=== PATIENT | male | born 2000 | race Two or more races ===

== ENCOUNTER 2021-12-05 05:11 | Emergency (ER) | payer OTHER ==
[~2021-12-05] VITALS: Ht 180.3 cm; Wt 100.0 kg
[2021-12-05 06:51] VITALS: BP 112/58
[2021-12-05] MEDS ORDERED: LIDOCAINE 1% HCL (LOCAL ANESTH.) INJ 20ML MDV ONE (09:10)
[2021-12-05] MEDS ORDERED: LIDOCAINE 1% HCL (LOCAL ANESTH.) INJ 20ML MDV ID ONE (09:15)
[2021-12-05] MEDS ORDERED: LORazepam 2MG/ML-1ML VIAL IV ONE (09:15)
[2021-12-05] MEDS ORDERED: ACETAMINOPHEN 325 MG TAB PO ONE ×2 (09:15→09:17)
[2021-12-05] MEDS ORDERED: NEOMYCIN-BACITRACIN-POLYM 15GM TOP OINT TOP ONE (09:45)
[2021-12-05] MEDS ORDERED: CEFD300C2 PO (09:51)
[2021-12-05] MEDS ORDERED: NAPR500T31 PO (09:51)
== END 2021-12-05 09:52 | disposition home or self-care (01) ==
LOC: ER 05:11
DX: S41.112A Laceration without foreign body of left upper arm, initial encounter (principal); F17.210 Nicotine dependence, cigarettes, uncomplicated; Y04.2XXA Assault by strike against or bumped into by another person, initial encounter; Y93.89 Activity, other specified; Y92.89 Other specified places as the place of occurrence of the external cause; Y99.8 Other external cause status
CPT/HCPCS: 12004; 99283; J2001; 12002

== ENCOUNTER 2022-01-26 02:17 | Emergency (ER) | payer OTHER ==
[~2022-01-26 02:17] MED LIST: CEFD300C2 PO; NAPR500T31 PO
== END 2022-01-26 04:07 | disposition left against medical advice (07) ==
LOC: ER 02:17
DX: S63.004A Unspecified dislocation of right wrist and hand, initial encounter (principal); Z53.21 Procedure and treatment not carried out due to patient leaving prior to being seen by health care provider; X58.XXXA Exposure to other specified factors, initial encounter; Y93.89 Activity, other specified; Y92.89 Other specified places as the place of occurrence of the external cause; Y99.8 Other external cause status

== ENCOUNTER 2022-02-08 01:15 | Emergency (ER) | payer OTHER ==
[~2022-02-08] VITALS: Ht 180.3 cm; Wt 110.0 kg
[2022-02-08 03:47] VITALS: BP 128/78
== END 2022-02-08 05:02 | disposition home or self-care (01) ==
LOC: ER 01:15
DX: S63.91XA Sprain of unspecified part of right wrist and hand, initial encounter (principal); F17.210 Nicotine dependence, cigarettes, uncomplicated; Z79.899 Other long term (current) drug therapy; W22.8XXA Striking against or struck by other objects, initial encounter; Y93.89 Activity, other specified; Y92.89 Other specified places as the place of occurrence of the external cause; Y99.8 Other external cause status
CPT/HCPCS: 73130

== ENCOUNTER 2022-09-26 14:38 | Emergency (ER) | payer OTHER ==
[~2022-09-26] VITALS: Ht 180.3 cm; Wt 104.9 kg
[~2022-09-26 14:38] MED LIST changes: +NAPR-746 PO; -NAPR500T31 PO
[2022-09-26 15:32] VITALS: BP 137/90
[2022-09-26] MEDS ORDERED: IBUP-1456 PO (18:24)
== END 2022-09-26 20:44 | disposition home or self-care (01) ==
LOC: ER 14:40
DX: S83.92XA Sprain of unspecified site of left knee, initial encounter (principal); I10 Essential (primary) hypertension; F17.210 Nicotine dependence, cigarettes, uncomplicated; F12.10 Cannabis abuse, uncomplicated; X50.1XXA Overexertion from prolonged static or awkward postures, initial encounter; Y93.61 Activity, american tackle football; Y92.89 Other specified places as the place of occurrence of the external cause; Y99.8 Other external cause status
CPT/HCPCS: 29505; 73562

== ENCOUNTER 2023-06-22 18:16 | Emergency (ER) | payer MEDICAID, OTHER ==
[~2023-06-22] VITALS: Ht 180.3 cm; Wt 114.0 kg
[~2023-06-22 18:16] MED LIST changes: +IBUP-1456 PO
[2023-06-22] MEDS ORDERED: MUPI2OIN2 EX (20:51)
[2023-06-22] MEDS ORDERED: IBUP1TAB5 PO (20:51)
[2023-06-22] MEDS ORDERED: CEPH500T PO (20:51)
[2023-06-22 21:40] VITALS: BP 143/93; TEMP 98.4; O2SAT 98
[2023-06-22 21:45] VITALS: PULSE 69; RESP 18
[2023-06-22] MEDS: NEOMYCIN-BACITRACIN-POLYM UNITDOSE PKG TOP OINT TOP ONE (21:50)
[2023-06-22] MEDS: TETANUS-DIPTH-ACEL PERTUSSIS 0.5ML SYR Tdap IM ONE (21:50)
[2023-06-22] MEDS: HYDROcodone-ACET 5/325MG TAB PO ONE (21:51)
[2023-06-22] MEDS: CEPHALEXIN 250 MG CAP PO ONE (21:51)
== END 2023-06-22 21:53 | disposition home or self-care (01) ==
LOC: ER 18:16
DX: S61.213A Laceration without foreign body of left middle finger without damage to nail, initial encounter (principal); I10 Essential (primary) hypertension; F17.210 Nicotine dependence, cigarettes, uncomplicated; Z79.1 Long term (current) use of non-steroidal anti-inflammatories (NSAID); Z79.899 Other long term (current) drug therapy; W26.8XXA Contact with other sharp object(s), not elsewhere classified, initial encounter; Y93.89 Activity, other specified; Y92.89 Other specified places as the place of occurrence of the external cause; Y99.8 Other external cause status
CPT/HCPCS: 12002; 73140; 90471; 90715

== ENCOUNTER 2024-12-28 08:31 | Emergency (ER) | payer MEDICAID, OTHER ==
[~2024-12-28] VITALS: Ht 180.3 cm; Wt 95.0 kg
[~2024-12-28 08:31] MED LIST changes: +CEPH500T PO; +IBUP1TAB5 PO; +MUPI2OIN2 EX
--- NOTE | 2024-12-28 09:04 | ED.PDOC ---
Musculoskeletal HPI Comments A 24-YEAR-OLD MALE WHO PRESENTS TO THE ED TO COMPLAIN OF LOWER EXTREMITY PAIN. PATIENT HAS BEEN HAVING BILATERAL LOWER EXTREMITY PAIN AND NUMBNESS SINCE 1 WEEK PRIOR WITH ASSOCIATED LOWER BACK PAIN. PATIENT STATES HE OTHERWISE HAS HISTORY OF LOWER BACK PAIN FOR THE PAST 1 YEAR AND STATES THAT HIS JOB AT [employer] REQUIRE S LIFTING HEAVY PACKAGES. PATIENT OTHERWISE IN THE ED ABLE TO AMBULATE WITHOUT ANY NOTED PAIN. PATIENT IN THE ED OTHERWISE HAS STABLE VITALS INCLUDING BLOOD PRESSURE 139/90 TEMPERATURE 98.5 F RESPIRATORY RATE 18 HEART RATE 77 AND O2 SATURATION AT 96% ON ROOM AIR. THERE IS NO SADDLE ANESTHESIA, URINARY OR BOWEL INCONTINENCE, PT DENIES FEVER, SOB, CHEST PAIN, DIFFICULRY URINATION, ABD PAIN, NAUSEA, VOMITING AND OTHER COMPLAINTS. PT IS ALERT, ORIENTATION X4 WITH NORMAL GAIT. Chief Complaint: Lower Extremity Time Seen by MD: 09:01 Primary Care Provider: COMMUNITY Reviewed Notes: Nurses Notes, Medications, Allergies Allergies: Coded Allergies: NO KNOWN ALLERGIES (Unverified , 12/05/21) Home Meds Active Scripts Mupirocin (Pseudomonas Fluores (Mupirocin) 2 % Oin, 1 APPLIC EX TID, #15 MG Prov:RAMIREZ,NORALDA Q DIGITAL RECRUITER 06/22/23 Ibuprofen Micronized (Ibuprofen) 600 Mg Tab, 1 TAB PO Q6HPRN PRN, #20 TAB as needed for pain Prov:RAMIREZ,NORALDA Q DIGITAL RECRUITER 06/22/23 Cephalexin Monohydrate (Cephalexin) 500 Mg Tab, 1 TAB PO QID for 10 Days, #40 TAB Prov:RAMIREZ,NORALDA Q DIGITAL RECRUITER 06/22/23 Ibuprofen (Ibuprofen) 800 Mg Tab, 1 TAB PO TID PRN, #30 TAB 0 Refills Prov:ARELI HOYOS 09/26/22 Naproxen (Naproxen) 500 Mg Tab, 500 MG PO BID for 5 Days, #10 TAB Prov:ALEXANDRA RAYMOND MD 12/05/21 Cefdinir (Cefdinir) 300 Mg Cap, 1 CAP PO BID for 7 Days, #14 CAP Prov:ALEXANDRA RAYMOND MD 12/05/21 Information Source: Patient Mode of Arrival: Ambulatory Location: Bilateral Extremity Location: Back Timing: Days Prehospital treatment: None Severity: Mild, Moderate Able to Move Extremity: Yes Bear Weight: Fully Pain: Mild Hand Dominance: Right Onset of Symptoms: Spontaneous Symptoms: Pain DVT Risk Factors: NONE Last Tetanus: UTD Associated signs and symptoms: Back pain Past Medical History PAST MEDICAL HISTORY: HTN Past Medical History (Other): CHRONIC LOW BACK PAIN Surgical History: Hernia Repair Family History Family History: Reviewed,noncontributory to illness Social History Smoker: Cigarettes, Less Than 1 Pack/Day Alcohol: Occasionally Drugs: Marijuana Lives In: Home Constitutional: denies: chills, diaphoresis, fatigue, fever, malaise, sweats, weakness, others EENTM: denies: blurred vision, double vision, ear bleeding, ear discharge, ear drainage, ear pain, ear ringing, eye pain, eye redness, hearing loss, mouth pain, mouth swelling, nasal discharge, nose bleeding, nose congestion, nose pain, photophobia, tearing, throat pain, throat swelling, voice changes, others Respiratory: denies: cough, hemoptysis, orthopnea, SOB at rest, shortness of breath, SOB with excertion, stridor, wheezing, others Cardiovascular: denies: chest pain, dizzy spells, diaphoresis, Dyspnea on exertion, edema, irregular heart beat, left arm pain, lightheadedness, palpitations, PND, syncope, others Gastrointestinal: denies: abdomen distended, abdominal pain, blood streaked bowels, constipated, diarrhea, dysphagia, difficulty swallowing, hematemesis, melena, nausea, poor appetite, poor fluid intake, rectal bleeding, rectal pain, vomiting, others Genitourinary: denies: burning, dysuria, flank pain, frequency, hematuria, incontinence, penile discharge, penile sore, pain, testicle pain, testicle swelling, urgency, others Neurological: denies: dizziness, fainting, headache, left sided numbness, left sided weakness, numbness, paresthesia, pre-existing deficit, right sided numbness, right sided weakness, seizure, speech problems, tingling, tremors, weakness, others Musculoskeletal: reports: back pain, muscle pain; denies: gout, joint pain, joint swelling, muscle stiffness, neck pain, others Integumetry: denies: bruises, change in color, change in hair/nails, dryness, laceration, lesions, lumps, rash, wounds, others Allergic/Immunocompromised: denies: Difficulty Healing, Frequent Infections, Hives, Itching, others Endocrine: denies: excessive hunger, excessive sweating, excessive thirst, excessive urination, flushing, intolerance to cold, intolerance to heat, unexplained weight gain, unexplained weight loss, others Psychiatric: denies: anxiety, bipolar disorder, depression, hopeless, panic disorder, schizophrenia, sleepless, suicidal, others All Other Systems: Reviewed and Negative Physical Exam General Appearance: No Apparent Distress, Normal HEENT: Normal ENT Inspection, PERRL/EOMI, Pharynx Normal, TMs Normal Neck: Full Range of Motion, Non-Tender, Normal, Normal Inspection Respiratory: Chest Non-Tender, Lungs Clear, No Accessory Muscle Use, No Respiratory Distress, Normal Breath Sounds Cardiovascular: No Edema, No JVD, No Murmur, No Gallop, Normal Peripheral Pulses, Regular Rate/Rhythm Breast Exam: Deferred Gastrointestinal: No Organomegaly, Non Tender, No Pulsatile Mass, Normal Bowel Sounds, Soft Genitalia: Deferred Pelvic: Deferred Rectal: Deferred Extremities: No calf tenderness, Normal capillary refill, Normal inspection, Normal range of motion, Non-tender, No pedal edema Musculoskeletal : Location: Bilateral Extremity Location: Back, Other (NO REDNESS AND SWELLING ON BILATERAL LOWER LEGS, NO DVT SIGNS. ) Apperance: Tenderness (AND MUSCLE SPASM ON LOWER BACK, NO BONY TENDERNESS, SWELLING AND DEFORMITY, ) Neurologic: Alert, wardrobe consultant II-XII nml as Tested, No Motor Deficits, Normal Affect, Normal Mood, No Sensory Deficits Cerebellar Function: Normal Reflexes: Normal Skin: Dry, Normal Color, Warm Peripheral Pulses: 2+ carotid (R), 2+ carotid (L), 2+ dorsalis pedis (R), 2+ dorsalis pedis (L) Lymphatic: No Adenopathy Was a procedure done? Was a procedure done?: No Differential Diagnosis EXT Differential Diagnosis: DJD, Strain, Other (CHRONIC LOW BCK PAIN EXACERBATION ) Other Differential Diagnosis MUSCLE STRAIN MUSCLE SPASM LUMBAR RADICULOPATHY X-Ray, Labs, Meds, VS Vital Signs Date Time Temp Pulse Resp B/P (MAP) Pulse Ox O2 Delivery O2 Flow Rate FiO2 12/28/24 08:36 98.5 77 18 139/90 96 98.5 Current Medications Medications (Trade) Dose Ordered Sig/Niko Route Start Time Stop Time Status Last Admin Methylprednisolone Sodium Succinate (Solu Medrol) 125 mg ONCE ONCE IM 12/28/24 09:15 12/28/24 09:16 DC 12/28/24 09:17 PATIENT: MAGGIE SCHULTZT: [id number]: [id number] : 2000 LOC: ER ROOM / BED: / AGE / SEX: 24 / M ADM STATUS: REG ER SERVICE ORDERING PHYSICIAN: MAURIZIO BETANCUR PROCEDURE(s): LUMB2 - LUMBAR SPINE 3 VIEW REASON: LOW BACK PAIN TO LOWER LEGS ORDER NUMBER(s): [id number], ACCESSION NUMBER(s): [id number] CLINICAL HISTORY: LOW BACK PAIN TO LOWER LEGS TECHNIQUE: 2 views of the lumbar spine were obtained. COMPARISON: None FINDINGS: The alignment of the lumbar spine is normal. The vertebral body heights and intervertebral disc spaces are well maintained. No acute fracture or dislocation is seen. IMPRESSION: NO ACUTE RADIOGRAPHIC ABNORMALITY OF THE LUMBAR SPINE. ATED BY: FRACISCO FINN MD DICTATED DATE/TIME: 12/28/24922 SIGNED BY: FRACISCO FINN MD SIGNED DATE/TIME: 12/28/24922 CC: X-Ray, Labs, Meds, VS Comment EXTERNAL MEDICAL RECORDS REVIEWED: [NONE] INDEPENDENT HISTORIANS: [NONE] SOCIAL DETERMINANTS OF HEALTH: [NONE] LABS ORDERED: NONE REVIEWED AND INTERPRETED RESULTS: NONE IMAGING ORDERED: LUMBAR SPINE X-RAY TREATMENTS ORDERED: SOLU-MEDROL 125MG IM PROCEDURES PERFORMED: NONE CRITICAL CARE TIME: NONE I HAVE DISCUSSED THE PATIENT WITH THE ATTENDING PHYSICIAN, DR. MORAN SHE AGREES WITH THE PATIENT'S PLAN OF CARE AND DISPOSITION. BASED ON HISTORY OF PRESENT ILLNESS, AND PHYSICAL EXAM, PATIENT WILL BE DISCHARGED HOME. DISCUSSED PLAN FOR DISCHARGE HOME WITH RX: PREDNISONE 20MG AND GABAPENTIN 300MG . MEDICATION WARNINGS GIVEN. SHARED DECISION MAKING: DISCUSSED WITH PATIENT THAT THEIR WORKUP WAS NORMAL. PATIENT INSTRUCTED TO FOLLOW UP WITH PRIMARY CARE PROVIDER IN 1-2 DAYS FOR RE-EVALUATION OF SYMPTOMS. PATIENT VERBALIZES UNDERSTANDING TO RETURN TO ED FOR NEW OR WORSENING SYMPTOMS OR IF FOLLOW UP WITH PCP CANNOT BE OBTAINED. PATIENT FEELS COMFORTABLE GOING HOME AT THIS TIME. ALL QUESTIONS ADDRESSED AT TIME OF DISCHARGE. Time of 1ST Reevaluation: 09:30 Reevaluation 1ST: Improved Patient Education/Counseling: Diagnosis, Treatment Family Education/Counseling: Diagnosis, Treatment Medical Screening: No EMC Exist At This Time Departure 1 Departure Time of Disposition: 09:30 Impression: Primary Impression: Low back pain with bilateral sciatica Qualified Codes: M54.42 - Lumbago with sciatica, left side; M54.41 - Lumbago with sciatica, right side Additional Impression: Acute exacerbation of chronic low back pain Disposition: HOME / SELF CARE / HOMELESS Condition: Stable Additional Instructions: F/U PCP IN 2 DAYS RECHECK. IF CONDITION BECOME WORSE, RETURN TO ED [facility]. e-Prescriptions Gabapentin (Gabapentin) 300 Mg Cap 300 MG PO BID, #30 CAP Prov: MAURIZIO BETANCUR 12/28/24 Prednisone (Prednisone) 20 Mg Tab 40 MG PO DAILY, #20 TAB Prov: MAURIZIO BETANCUR 12/28/24 Discharged With: Self, Relative Critical Care Note Critical Care Time?: No Stability Stability form required: No Heart Score Heart Score: Heart Score Response (Comments) Value History N/A 0 EKG N/A 0 Age N/A 0 Risk Factors N/A 0 Troponin N/A 0 Total 0 I personally scribed for MAURIZIO BETANCUR ([email or web address]) on 12/28/24 at 09:04. Electronically submitted by Sue Bradford ([email or web address]). I personally scribed for MAURIZIO BETANCUR ([email or web address]) on 12/28/24 at 09:07. Electronically submitted by Sue Bradford ([email or web address]). I personally scribed for MAURIZIO BETANCUR ([email or web address]) on 12/28/24 at 09:18. Electronically submitted by Sue Bradford ([email or web address]). MAURIZIO BETANCUR Dec 28, 2024 09:04
[2024-12-28] MEDS: methylPREDNISolone SOD SUCC 125 MG/2 ML VL IM ONE (09:17)
--- NOTE | 2024-12-28 09:25 | DVH ---
CLINICAL HISTORY: LOW BACK PAIN TO LOWER LEGS TECHNIQUE: 2 views of the lumbar spine were obtained. COMPARISON: None FINDINGS: The alignment of the lumbar spine is normal. The vertebral body heights and intervertebral disc space s are well maintained. No acute fracture or dislocation is seen. IMPRESSION: NO ACUTE RADIOGRAPHIC ABNORMALITY OF THE LUMBAR SPINE.
[2024-12-28] MEDS ORDERED: GABA-1250 PO (09:39)
[2024-12-28] MEDS ORDERED: PRED20TA2 PO (09:39)
[2024-12-28 09:46] VITALS: BP 110/70; PULSE 65; RESP 18; TEMP 99; O2SAT 95
== END 2024-12-28 09:45 | disposition home or self-care (01) ==
LOC: ER 08:31
DX: M54.41 Lumbago with sciatica, right side (principal); M54.42 Lumbago with sciatica, left side; I10 Essential (primary) hypertension; F17.210 Nicotine dependence, cigarettes, uncomplicated; Z98.890 Other specified postprocedural states
CPT/HCPCS: 72100; 96372; 99283; J2919

== ENCOUNTER 2025-01-22 06:53 | Emergency (ER) | payer OTHER ==
[~2025-01-22] VITALS: Ht 180.3 cm; Wt 99.3 kg
[~2025-01-22 06:53] MED LIST changes: +GABA-1250 PO; +PRED20TA2 PO
[2025-01-22 07:18] VITALS: BP 153/93; PULSE 111; RESP 16; TEMP 98.2; O2SAT 97
--- NOTE | 2025-01-22 07:21 | ED.PDOC ---
HPI Comments A 24 YEAR OLD MALE PRESENTS TO THE ED WITH COMPLAINT OF LACERATION. PATIENT REPORTS THAT WHILE CLEANING UP AFTER A GREEN PARTY LAST NIGHT, HE HAD ACCIDENTALLY CUT THE BASE OF HIS RIGHT INDEX FINGER WITH A SHARP PIECE OF GLASS. PATIENT RELAYS THAT THE BLEEDING IS NOW CONTROLLED, BUT CAME IN TO HAVE THE WOUND CLOSED. PATIENT DENIES NUMBNESS, WEAKNESS, TINGLING, OR OTHER COMPLAINTS. NO OTHER SYMPTOMS OR MODIFYING FACTORS AT THIS TIME. PATIENT IS ALERT, ORIENTED X 4, AND HAS STEADY GAIT. Chief Complaint: Laceration Time Seen by MD: 06:59 Primary Care Provider: COMMUNITY Reviewed Notes: Nurses Notes, Medications, Allergies Allergies: Coded Allergies: NO KNOWN ALLERGIES (Unverified , 12/05/21) Home Meds Active Scripts Cephalexin Monohydrate (Cephalexin) 500 Mg Cap, 1 CAP PO QID, #28 CAP Prov:MAURIZIO BETANCUR 01/22/25 Gabapentin (Gabapentin) 300 Mg Cap, 300 MG PO BID, #30 CAP Prov:MAURIZIO BETANCUR 12/28/24 Prednisone (Prednisone) 20 Mg Tab, 40 MG PO DAILY, #20 TAB Prov:MAURIZIO BETANCUR 12/28/24 Mupirocin (Pseudomonas Fluores (Mupirocin) 2 % Oin, 1 APPLIC EX TID, #15 MG Prov:RAMIREZNORALDA Q PLUG CUTTER 06/22/23 Ibuprofen Micronized (Ibuprofen) 600 Mg Tab, 1 TAB PO Q6HPRN PRN, #20 TAB as needed for pain Prov:RAMIREZISAELALDA Q PLUG CUTTER 06/22/23 Cephalexin Monohydrate (Cephalexin) 500 Mg Tab, 1 TAB PO QID for 10 Days, #40 TAB Prov:DERIK RAMIREZA Q PLUG CUTTER 06/22/23 Ibuprofen (Ibuprofen) 800 Mg Tab, 1 TAB PO TID PRN, #30 TAB 0 Refills Prov:ARELI HOYOS 09/26/22 Naproxen (Naproxen) 500 Mg Tab, 500 MG PO BID for 5 Days, #10 TAB Prov:ALEXANDRA RAYMOND MD 12/05/21 Cefdinir (Cefdinir) 300 Mg Cap, 1 CAP PO BID for 7 Days, #14 CAP Prov:ALEXANDRA RAYMNOD MD 12/05/21 Information Source: Patient Mode of Arrival: Ambulatory Severity: Moderate Severity of Laceration: Controlled Bleeding Complexity: Simple Timing: Hours Prehospital treatment: None Laceration Location: Digit #2 Mechanism: Glass Last Tetanus: UTD Laceration Length (cm): 3 Skin Type: Linear Depth of Injury: SQ Tendon Injury: 0% Capillary Refill: < 3 seconds Tender: Mild Discharge: Serosanguinous Erythema: Localized to Wound Edges Associated Signs and Symptoms: None Past Medical History PAST MEDICAL HISTORY: HTN Surgical History: Hernia Repair Family History Family History: Reviewed,noncontributory to illness Social History Smoker: Cigarettes, Less Than 1 Pack/Day Alcohol: Occasionally Drugs: Marijuana Lives In: Home Constitutional: denies: chills, diaphoresis, fatigue, fever, malaise, sweats, weakness, others EENTM: denies: blurred vision, double vision, ear bleeding, ear discharge, ear drainage, ear pain, ear ringing, eye pain, eye redness, hearing loss, mouth pain, mouth swelling, nasal discharge, nose bleeding, nose congestion, nose pain, photophobia, tearing, throat pain, throat swelling, voice changes, others Respiratory: denies: cough, hemoptysis, orthopnea, SOB at rest, shortness of breath, SOB with excertion, stridor, wheezing, others Cardiovascular: denies: chest pain, dizzy spells, diaphoresis, Dyspnea on exertion, edema, irregular heart beat, left arm pain, lightheadedness, palpitations, PND, syncope, others Gastrointestinal: denies: abdomen distended, abdominal pain, blood streaked bowels, constipated, diarrhea, dysphagia, difficulty swallowing, hematemesis, melena, nausea, poor appetite, poor fluid intake, rectal bleeding, rectal pain, vomiting, others Genitourinary: denies: burning, dysuria, flank pain, frequency, hematuria, incontinence, penile discharge, penile sore, pain, testicle pain, testicle swelling, urgency, others Neurological: denies: dizziness, fainting, headache, left sided numbness, left sided weakness, numbness, paresthesia, pre-existing deficit, right sided numbness, right sided weakness, seizure, speech problems, tingling, tremors, weakness, others Musculoskeletal: denies: back pain, gout, joint pain, joint swelling, muscle pain, muscle stiffness, neck pain, others Integumetry: reports: laceration (BASE OF RT INDEX FINGER); denies: bruises, change in color, change in hair/nails, dryness, lesions, lumps, rash, wounds, others Allergic/Immunocompromised: denies: Difficulty Healing, Frequent Infections, Hives, Itching, others Hematologic/Lymphatic: denies: anemia, blood clots, easy bleeding, easy bruising, swollen glands, others Endocrine: denies: excessive hunger, excessive sweating, excessive thirst, excessive urination, flushing, intolerance to cold, intolerance to heat, unexplained weight gain, unexplained weight loss, others Psychiatric: denies: anxiety, bipolar disorder, depression, hopeless, panic disorder, schizophrenia, sleepless, suicidal, others All Other Systems: Reviewed and Negative Physical Exam General Appearance: No Apparent Distress, Normal HEENT: Normal ENT Inspection, PERRL/EOMI Neck: Full Range of Motion, Non-Tender, Normal, Normal Inspection Respiratory: Chest Non-Tender, Lungs Clear, No Accessory Muscle Use, No Respiratory Distress, Normal Breath Sounds Cardiovascular: No Edema, No JVD, No Murmur, No Gallop, Normal Peripheral Pulses, Regular Rate/Rhythm Breast Exam: Deferred Gastrointestinal: No Organomegaly, Non Tender, No Pulsatile Mass, Normal Bowel Sounds, Soft Genitalia: Deferred Pelvic: Deferred Rectal: Deferred Extremities: No calf tenderness, Normal capillary refill, Normal range of motion, No pedal edema, Tender (WITH LACERATION ON RIGHT BASE OF INDEX FINGER. ) Musculoskeletal : Apperance: Normal Neurologic: Alert, autographer II-XII nml as Tested, No Motor Deficits, Normal Affect, Normal Mood, No Sensory Deficits Cerebellar Function: Normal Reflexes: Normal Skin: Dry, Lacerations (3CM LACERATION ON LEFT BASE OF INDEX FINGER, NO BLEEDING AND FB, NEUROVASCULAR INTACT WITH NORMAL ROM. ), Normal Color, Warm Peripheral Pulses: 2+ carotid (R), 2+ carotid (L), 2+ Radial (R), 2+ Radial (L) Lymphatic: No Adenopathy Was a procedure done? Was a procedure done?: Yes Sedation Sedation?: No Laceration Repair : Location BASE OF RIGHT INDEX FINGER Length 3CM Anesthetic: Lidocaine, Without epi Laceration Repair Prep: Saline, Betadine, by Irrigation, Manual Scrub Laceration Repair Wound Comple: subcut tissue repair Laceration Repair: Number of sutures (6, 4-0 ETHILON SUTURES), SQ, Size (4- 0), Nylon, Simple, Bacitracin, Gauze Informed consent obtained: No Risks, benefits, and alternati: Yes Images 1 - Differential diagnosis Generic Laceration: Laceration, Avulsion X-Ray, Labs, Meds, VS Vital Signs Date Time Temp Pulse Resp B/P (MAP) Pulse Ox O2 Delivery O2 Flow Rate FiO2 01/22/25 07:18 111 16 97 Room Air 01/22/25 07:18 98.2 111 16 153/93 (113) 97 98.2 01/22/25 06:54 98.2 111 16 153/93 97 98.2 X-Ray, Labs, Meds, VS Comment EXTERNAL MEDICAL RECORDS REVIEWED: [NONE] INDEPENDENT HISTORIANS: [NONE] SOCIAL DETERMINANTS OF HEALTH: [NONE] LABS ORDERED: NONE REVIEWED AND INTERPRETED RESULTS: NONE IMAGING ORDERED: NONE TREATMENTS ORDERED: NONE PROCEDURES PERFORMED: RT HAND LACERATION REPAIR CRITICAL CARE TIME: NONE I HAVE DISCUSSED THE PATIENT WITH THE ATTENDING PHYSICIAN, DR. WILCOX. HE AGREES WITH THE PATIENT'S PLAN OF CARE AND DISPOSITION. BASED ON HISTORY OF PRESENT ILLNESS, AND PHYSICAL EXAM, PATIENT WILL BE DISCHARGED HOME. DISCUSSED PLAN FOR DISCHARGE HOME. SHARED DECISION MAKING: DISCUSSED WITH PATIENT THAT THEIR WORKUP WAS NORMAL. PATIENT INSTRUCTED TO FOLLOW UP WITH PRIMARY CARE PROVIDER IN 1-2 DAYS FOR RE- EVALUATION OF SYMPTOMS. PATIENT VERBALIZES UNDERSTANDING TO RETURN TO ED FOR NEW OR WORSENING SYMPTOMS OR IF FOLLOW UP WITH PCP CANNOT BE OBTAINED. PATIENT FEELS COMFORTABLE GOING HOME AT THIS TIME. ALL QUESTIONS ADDRESSED AT TIME OF DISCHARGE. Time of 1ST Reevaluation: 07:30 Reevaluation 1ST: Improved Patient Education/Counseling: Diagnosis, Treatment, Need For Follow Up Family Education/Counseling: Diagnosis, Treatment, No Family Present Medical Screening: No EMC Exist At This Time Departure 1 Departure Time of Disposition: 07:30 Impression: Primary Impression: Laceration of right hand Qualified Codes: S61.411A - Laceration without foreign body of right hand, initial encounter Disposition: HOME / SELF CARE / HOMELESS Condition: Stable Additional Instructions: FOLLOW-UP WITH PCP IN 1 TO 2 DAYS. TAKE MEDICATIONS PRESCRIBED. RETURN TO ED FOR ANY NEW OR WORSENING SYMPTOMS. e-Prescriptions Cephalexin Monohydrate (Cephalexin) 500 Mg Cap 1 CAP PO QID, #28 CAP Prov: MAURIZIO BETANCUR 01/22/25 Discharged With: Self Critical Care Note Critical Care Time?: No Stability Stability form required: No Heart Score Heart Score: Heart Score Response (Comments) Value History N/A 0 EKG N/A 0 Age N/A 0 Risk Factors N/A 0 Troponin N/A 0 Total 0 I personally scribed for MAURIZIO BETANCUR ([email or web address]) on 01/22/25 at 07:21. Electronically submitted by Rey Gonzalez ([email or web address]). MAURIZIO BETANCUR Jan 22, 2025 07:21
[2025-01-22] MEDS ORDERED: CEPH500C PO (07:24)
== END 2025-01-22 07:20 | disposition home or self-care (01) ==
LOC: ER 06:53
DX: S61.210A Laceration without foreign body of right index finger without damage to nail, initial encounter (principal); I10 Essential (primary) hypertension; F17.210 Nicotine dependence, cigarettes, uncomplicated; Z79.899 Other long term (current) drug therapy; Z98.890 Other specified postprocedural states; W25.XXXA Contact with sharp glass, initial encounter; Y93.E8 Activity, other personal hygiene; Y92.89 Other specified places as the place of occurrence of the external cause; Y99.8 Other external cause status
CPT/HCPCS: 12002

== ENCOUNTER 2025-02-20 07:15 | Emergency (ER) | payer MEDICAID, OTHER ==
[~2025-02-20] VITALS: Ht 180.3 cm; Wt 96.9 kg
[~2025-02-20 07:15] MED LIST changes: +CEPH500C PO
[2025-02-20] MEDS ORDERED: METR-344 PO (07:52)
[2025-02-20 07:53] VITALS: BP 144/99; PULSE 71; RESP 18; TEMP 98.6; O2SAT 98
--- NOTE | 2025-02-20 07:55 | ED.PDOC ---
History of Present Illness HPI Comments A 24 YEAR OLD MALE PRESENTS TO THE ED WITH COMPLAINT OF REQUEST FOR STD SCREENING AND TREATMENT. PATIENT STATES HE WAS RECENTLY EXPOSED TO TRICHOMONAS DUE TO HIS PARTNER RECENTLY TESTING POSITIVE FOR TRICHOMONAS. PATIENT IS REQUESTING STD SCREENING AND TREATMENT HERE IN THE ED DUE TO THIS EXPOSURE. PATIENT DENIES DYSURIA, HEMATURIA, PENILE DISCHARGE, FEVER, CHILLS, SHORTNESS OF BREATH, CHEST PAIN, ABDOMINAL PAIN, NAUSEA, VOMITING, HEADACHE, OR OTHER COMPLAINTS. NO OTHER SYMPTOMS OR MODIFYING FACTORS AT THIS TIME. PATIENT IS ALERT, ORIENTED X 4, AND HAS STEADY GAIT. Chief Complaint: Abnormal LAB's Time Seen by MD: 07:21 Primary Care Provider: [facility] Reviewed Notes: Nurses Notes, Medications, Allergies Allergies: Coded Allergies: NO KNOWN ALLERGIES (Unverified , 12/05/21) Home Meds Active Scripts Metronidazole (Flagyl) 500 Mg Tab, 1 TAB PO BID, #14 TAB Prov:MAURIZIO BETANCUR 02/20/25 Cephalexin Monohydrate (Cephalexin) 500 Mg Cap, 1 CAP PO QID, #28 CAP Prov:MAURIZIO BETANCUR 01/22/25 Gabapentin (Gabapentin) 300 Mg Cap, 300 MG PO BID, #30 CAP Prov:MAURIZIO BETANCUR 12/28/24 Prednisone (Prednisone) 20 Mg Tab, 40 MG PO DAILY, #20 TAB Prov:MAURIZIO BETANCUR 12/28/24 Mupirocin (Pseudomonas Fluores (Mupirocin) 2 % Oin, 1 APPLIC EX TID, #15 MG Prov:ASHLEYNORALDA Q DELIVERY PROFESSIONAL 06/22/23 Ibuprofen Micronized (Ibuprofen) 600 Mg Tab, 1 TAB PO Q6HPRN PRN, #20 TAB as needed for pain Prov:ASHLEYNORALDA Q DELIVERY PROFESSIONAL 06/22/23 Cephalexin Monohydrate (Cephalexin) 500 Mg Tab, 1 TAB PO QID for 10 Days, #40 TAB Prov:DERIK RAMIREZA Q DELIVERY PROFESSIONAL 06/22/23 Ibuprofen (Ibuprofen) 800 Mg Tab, 1 TAB PO TID PRN, #30 TAB 0 Refills Prov:ARELI HOYOS 09/26/22 Naproxen (Naproxen) 500 Mg Tab, 500 MG PO BID for 5 Days, #10 TAB Prov:ALEXANDRA RAYMOND MD 12/05/21 Cefdinir (Cefdinir) 300 Mg Cap, 1 CAP PO BID for 7 Days, #14 CAP Prov:ALEXANDRA RAYMOND MD 12/05/21 Information Source: Patient Mode of Arrival: Ambulatory Severity: Mild Timing: Days Duration: Since onset, Days Prehospital treatment: None Medication Refill: For: Other (REQUEST FOR STD SCREENING AND TREATMENT) Past Medical History PAST MEDICAL HISTORY: HTN Surgical History: Hernia Repair Family History Family History: Reviewed,noncontributory to illness Social History Smoker: Cigarettes, Less Than 1 Pack/Day Alcohol: Occasionally Drugs: Marijuana Lives In: Home Constitutional: denies: chills, diaphoresis, fatigue, fever, malaise, sweats, weakness, others EENTM: denies: blurred vision, double vision, ear bleeding, ear discharge, ear drainage, ear pain, ear ringing, eye pain, eye redness, hearing loss, mouth pain, mouth swelling, nasal discharge, nose bleeding, nose congestion, nose pain, photophobia, tearing, throat pain, throat swelling, voice changes, others Respiratory: denies: cough, hemoptysis, orthopnea, SOB at rest, shortness of breath, SOB with excertion, stridor, wheezing, others Cardiovascular: denies: chest pain, dizzy spells, diaphoresis, Dyspnea on exertion, edema, irregular heart beat, left arm pain, lightheadedness, palpitations, PND, syncope, others Gastrointestinal: denies: abdomen distended, abdominal pain, blood streaked bowels, constipated, diarrhea, dysphagia, difficulty swallowing, hematemesis, melena, nausea, poor appetite, poor fluid intake, rectal bleeding, rectal pain, vomiting, others Genitourinary: denies: burning, dysuria, flank pain, frequency, hematuria, in continence, penile discharge, penile sore, pain, testicle pain, testicle swelling, urgency, others Neurological: denies: dizziness, fainting, headache, left sided numbness, left sided weakness, numbness, paresthesia, pre-existing deficit, right sided numbness, right sided weakness, seizure, speech problems, tingling, tremors, weakness, others Musculoskeletal: denies: back pain, gout, joint pain, joint swelling, muscle pain, muscle stiffness, neck pain, others Integumetry: denies: bruises, change in color, change in hair/nails, dryness, laceration, lesions, lumps, rash, wounds, others Allergic/Immunocompromised: denies: Difficulty Healing, Frequent Infections, Hives, Itching, others Hematologic/Lymphatic: denies: anemia, blood clots, easy bleeding, easy bruising, swollen glands, others Endocrine: denies: excessive hunger, excessive sweating, excessive thirst, excessive urination, flushing, intolerance to cold, intolerance to heat, unexplained weight gain, unexplained weight loss, others Psychiatric: denies: anxiety, bipolar disorder, depression, hopeless, panic disorder, schizophrenia, sleepless, suicidal, others All Other Systems: Reviewed and Negative Physical Exam General Appearance: No Apparent Distress, Normal HEENT: Normal ENT Inspection, PERRL/EOMI, Pharynx Normal, TMs Normal Neck: Full Range of Motion, Non-Tender, Normal, Normal Inspection Respiratory: Chest Non-Tender, Lungs Clear, No Accessory Muscle Use, No Respiratory Distress, Normal Breath Sounds Cardiovascular: No Edema, No JVD, No Murmur, No Gallop, Normal Peripheral Pulses, Regular Rate/Rhythm Breast Exam: Deferred Gastrointestinal: No Organomegaly, Non Tender, No Pulsatile Mass, Normal Bowel Sounds, Soft Genitalia: Deferred Pelvic: Deferred Rectal: Deferred Extremities: No calf tenderness, Normal capillary refill, Normal inspection, Normal range of motion, Non-tender, No pedal edema Musculoskeletal : Apperance: Normal Neurologic: Alert, ui ux engineer II-XII nml as Tested, No Motor Deficits, Normal Affect, Normal Mood, No Sensory Deficits Cerebellar Function: Normal Reflexes: Normal Skin: Dry, Normal Color, Warm Peripheral Pulses: 2+ carotid (R), 2+ carotid (L) Lymphatic: No Adenopathy Was a procedure done? Was a procedure done?: No Differential Dx Considerations may include: STD SCREENING AND TREATMENT, EXPOSURE TO STD X-Ray, Labs, Meds, VS Vital Signs Date Time Temp Pulse Resp B/P (MAP) Pulse Ox O2 Delivery O2 Flow Rate FiO2 02/20/25 07:21 98.6 71 18 144/99 98 98.6 X-Ray, Labs, Meds, VS Comment EXTERNAL MEDICAL RECORDS REVIEWED: [NONE] INDEPENDENT HISTORIANS: [NONE] SOCIAL DETERMINANTS OF HEALTH: [NONE] LABS ORDERED: GC/CHLAMYDIA AMPLIFICATION REVIEWED AND INTERPRETED RESULTS: PENDING IMAGING ORDERED: NONE TREATMENTS ORDERED: NONE PROCEDURES PERFORMED: NONE CRITICAL CARE TIME: NONE I HAVE DISCUSSED THE PATIENT WITH THE ATTENDING PHYSICIAN DR. RAYMOND AND HE AGREES WITH THE PATIENT'S PLAN OF CARE AND DISPOSITION. BASED ON HISTORY OF PRESENT ILLNESS, AND PHYSICAL EXAM, PATIENT WILL BE DISCHARGED HOME. DISCUSSED PLAN FOR DISCHARGE HOME WITH RX [FLAGYL 500 MG]. MEDICATION WARNINGS GIVEN. SHARED DECISION MAKING: PATIENT INSTRUCTED TO FOLLOW UP WITH PRIMARY CARE PROVIDER IN 1-2 DAYS FOR RE-EVALUATION OF SYMPTOMS. PATIENT VERBALIZES UNDERSTANDING TO RETURN TO ED FOR NEW OR WORSENING SYMPTOMS OR IF FOLLOW UP WITH PCP CANNOT BE OBTAINED. PATIENT FEELS COMFORTABLE GOING HOME AT THIS TIME. ALL QUESTIONS ADDRESSED AT TIME OF DISCHARGE. Time of 1ST Reevaluation: 08:05 Reevaluation 1ST: Improved Patient Education/Counseling: Diagnosis, Treatment, Need For Follow Up Family Education/Counseling: Diagnosis, Treatment, Need For Follow Up Medical Screening: No EMC Exist At This Time SEPSIS Sepsis Screen Date sepsis recognized/suspect: Feb 20, 2025 Time Sepsis recognized/suspect: 722 Recent Procedure: No On Antibiotic Therapy: No Respiratory Rate >20: No Heart Rate >90: No Temp<36 C (96.8 F) or >38.3 C: No SBP <90 or MAP <65 mmHG: No New Acute Mental Status Change: No Is the patient on CPAP, BIPAP,: No Physician Orders Chlamydia/Gc Amplification (02/20/25 07:51) Vital Signs Date Time Temp Pulse Resp B/P (MAP) Pulse Ox O2 Delivery O2 Flow Rate FiO2 02/20/25 07:21 98.6 71 18 144/99 98 98.6 Departure 1 Departure Time of Disposition: 08:05 Impression: Primary Impression: Screening for STDs (sexually transmitted diseases) Disposition: 01 HOME / SELF CARE / HOMELESS Condition: Stable Additional Instructions: FOLLOW-UP WITH PCP IN 1 TO 2 DAYS. TAKE MEDICATIONS PRESCRIBED. RETURN TO ED FOR ANY NEW OR WORSENING SYMPTOMS. e-Prescriptions Metronidazole (Flagyl) 500 Mg Tab 1 TAB PO BID, #14 TAB Prov: MAURIZIO BETANCUR 02/20/25 Discharged With: Self Critical Care Note Critical Care Time?: No Stability Stability form required: No I personally scribed for MAURIZIO BETANCUR ([email or web address]) on 02/20/25 at 07:55. Electronically submitted by Ignacio Lepe ([email or web address]). MAURIZIO BETANCUR Feb 20, 2025 07:55
[2025-02-21 16:07] LABS: Chlamydia Trachomatis, NAA Negative (Negative); Neisseria gonorrhoeae, NAA Negative (Negative)
== END 2025-02-20 07:53 | disposition home or self-care (01) ==
LOC: ER 07:15
DX: Z11.3 Encounter for screening for infections with a predominantly sexual mode of transmission (principal); F12.90 Cannabis use, unspecified, uncomplicated; F10.90 Alcohol use, unspecified, uncomplicated; F17.210 Nicotine dependence, cigarettes, uncomplicated; I10 Essential (primary) hypertension; Z79.899 Other long term (current) drug therapy; Z79.52 Long term (current) use of systemic steroids; Z98.890 Other specified postprocedural states